=== PATIENT | male | born 1980 | race Caucasian/White ===

== ENCOUNTER 2019-10-13 07:18 | Day surgery (SDC) | payer SELFPAY ==
--- NOTE | 2019-10-12 13:22 | ANES.PREANE2 ---
Pre-Anesthetic Assessment Pre-Anesthetic Assessment: Height/Weight: Height 1.78 m Weight 63.503 kg Preop Diagnosis: Symptomatic right groin hernia Proposed Procedure: Operation Date: 10/13/19 08:50 Proposed Procedures p Laparoscopic Inguinal Hernia Repair(Right) - Franky Singer MD Social: Social History: Tobacco and No alcohol Exam: Pre-Anes Outpt Exam: alert, oriented x 3, clear to auscultation bilaterally and regular rate & rhythm Airway: Submandibular: WNL Cervical ROM: WNL MP: 1 Dentition: Full History/ROS: No significant history except as noted Pulmonary: Pulmonary: None reported CV/HEM: CV/HEM: None reported : : None reported Hepatic: Hepatic: Hepatitis (C) GI: GI: None reported Metabolic: Metabolic: None reported Musc/skel: Musc/skel: None reported Neuropsych: Neuropsych: None reported Anesthetic Plan: ASA status: 2 Anesthesia: Anesthesia Evaluation and General Risk of > 500 ml blood loss (7ml/kg in children): No PFSH Anesthesia PFSH: Medical History Hepatitis C Right inguinal hernia Surgical History History of hand surgery Left History of tonsillectomy and adenoidectomy Family History Denies family history of Anesthesia complication Bleeding disorder Social History Smoking and tobacco status: current every day smoker cigarettes Alcohol intake: never Lives independently: Yes Household members: family History of recent travel: No Data Anesthesia Cardiac Studies: No Data to Display
[2019-10-13] VITALS (11 sets, daily range): BP systolic 98–154; BP diastolic 68–92; PULSE 69–107; RESP 18–26; TEMP 36.2–36.7; O2SAT 91–99
[2019-10-13] MEDS: sodium chloride 0.9% 1,000 ML 30 ML IV (07:58)
--- NOTE | 2019-10-13 08:49 | PM.HPUD ---
H&P update H&P Update: DATE OF SURGERY/PROCEDURE: 10/13/19 DATE H&P PERFORMED: 09/30/19 H&P UPDATE INFORMATION: H&P completed within last 30 days and No changes to prior documentation PREOP DIAGNOSIS: Symptomatic right groin hernia PRIMARY INDICATION FOR PROCEDURE: The same PLANNED PROCEDURE: Operation Date: 10/13/19 08:50 Proposed Procedures p Laparoscopic Inguinal Hernia Repair(Right) - Franky Singer MD Full H&P Medications/Allergies: Current Medications: Current Medications Generic Name Dose Route Start Last Admin Trade Name Freq PRN Reason Stop Dose Admin Sodium Chloride 1,000 mls @ 30 ml s/hr 10/13/19 07:00 10/13/19 07:58 Sodium Chloride 0.9% IV 10/14/19 06:59 30 mls/hr .Q24H ROCIO Administration Perinent History: Medical/Surgical History: Medical History (Updated 09/30/19 @ 15:07 by Franky Singer MD) Hepatitis C Right inguinal hernia Family History: Family History (Updated 09/30/19 @ 13:32 by JACE Silverman) Denies family history of Anesthesia complication Bleeding disorder Social History: Social History Smoking and tobacco status: current every day smoker cigarettes Alcohol intake: never Lives independently: Yes Household members: family History of recent travel: No
[2019-10-13] MEDS: clindamycin 600 MG/50 ML PREMIX 100 MG IV (09:01)
--- NOTE | 2019-10-13 10:50 | PM.OP ---
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 Indications, risks, benefits and alternatives all discussed with the patient Informed consent per chart Procedure: Procedure: Transabdominal preperitoneal (LISA) approach. Patient was identified in the holding area ,patient was taken to the operating room where he was placed in supine position, with both arms were tucked, antibiotic was given with induction, endotracheal tube was placed per anesthesia, Carrillo catheter was inserted by the circulating nurse and revealed clear urine, prep and drape of the abdomen was done under the usual sterile technique. Time-out was done verifying the patient's name/date of /planned procedure destination after the procedure, all were in agreement. SCDs confirmed to be functioning, preoperative antibiotics administered per protocol, and beta rebecca protocol was confirmed. A vertical skin incision of 1.2 cm was made with 11 blade knife through the supra umbilicus , incision was carried down to the subcutaneous tissue and deepened to identify the anterior fascia, evidence of large dave-umbilical fat-containing hernia(fascial defect less than 1 inch in diameter) was dissected and hernial sac and contents were sent for permanent pathology followed by that, two stay sutures were applied to the fascia, and safe entrance to the abdominal cavity was achieved, a Bolaños trocar technique safe entry to the abdominal cavity was achieved verified by using 10 mm zero degree laparoscopy, switched to a 30 degrees scope,low flow followed by a higher flow of CO2 gas up to 15 mmHg. There was no evidence of injury to intra-abdominal structures from the port entry, attention was deviated to both groins, there was a large direct hernia defect with herniation of peritoneum and preperitoneal fat was noted on the right side, two 5 mm ports were placed on the lower left lateral and left upper aspect of the abdomen, under direct visualization, anesthesia 2% lidocaine local was injected at all trocar sites prior to incisions. The peritoneum above the level of the iliopubic tract was incised to the left of the midline and dissection was performed to create a preperitoneal space medial to lateral aspect up to anterior superior iliac spine on the right side. Dissection was continued onto the medial aspect and the right spermatic was identified, there was evidence of indirect inguinal hernia .the sac was dissected. As it applied medial to the right inferior epigastric vessels/ dissection was performed to clear the space lateral to the spermatic cord and dorsomedial to it, the hernia sac was reduced and retracted far back, so there wasn't evidence of a small direct inguinal hernia that was dissected. There was a lot of scar tissues with the hernia sac and a small rent in the peritoneum leaflet was done and thus a 5 mm clips were applied. Then a large 3-D mesh was rolled and placed into the abdominal cavity through the Bolaños port, after the mesh was introduced it was positioned to lie in the myopectineal orifice and the mesh was unrolled and this covered the entire my myope pectineal orifice. Intra-abdominal pressure was dropped to 12 mmHg to help placement of the mesh good position On the lateral aspect of the mesh extended up to the anterior superior iliac spine on the medial aspect the mesh crossed the midline onto the left side, then using absorbable tacks, placed above the iliopubic tract onto the rectus abdominis muscle on the medial aspect and also to the lateral abdominal wall superomedial to the sacroiliac spine, then the mesh was also anchored to the pubis and the Skyler's ligament inferiorly. The peritoneal leaflets were then brought together to cover the mesh and isolated from the other viscera, extra tacks were used to secure the peritoneum in good position. 5 mm clips were applied at the lower part of the peritoneum as there was a small rent Final look demonstrated good hemostasis and the mesh in good position A total of 20 mL Exparel 40 ml Normal saline 20 ml bupivacaine 0.25% were injected at the remaining of the tacks site and trocar sites as well Final look demonstrated good hemostasis, then the abdomen was desufflated while holding the peritoneum to make sure there is no herniation blue the mesh. All ports were removed. Then the fascia on the supra umbilical fascial defect previous site of the hernia was closed using 0 Vicryl under direct visualization using fascial closure device Mahin Puentes. All skin incisions were closed with 4-0 Monocryl subcuticular suture and Dermabond was applied. The patient tolerated the procedure well, Carrillo catheter was taken out ,got extubated and was taken to the recovery area in stable condition All counts of instruments, needles and sponges were completed I was present for the whole entire procedure
[2019-10-13] MEDS: fentaNYL 50 mcg/mL INJ 2mL IVP ×2 (10:58→11:03)
[2019-10-13] MEDS: morphine 4 mg/mL SDV 1 mL 2 MG IVP ×2 (11:05→11:07)
--- NOTE | 2019-10-13 11:27 | SUR.PHASEI ---
1055 PT TO PACU AWAKES TRYING TO GET UP STICKING TONGUE OUT CONFUSED PUSHING AT STAFF, ABD FLAT SOFT WITH 3 SITES EXOFIN SCROTAL SUPPORT AND FLUFFS, PT MOANING FACE SCALE 10 FOR PAIN 1100 PT PUSHING AND TRYING TO GET UP PT REORIENTED AND ASSISTED TO STAY IN BED PT VERBALLY AGGRESSIVE, DOES NOT COMPREHEND RECENT EVENTS PT C/O OF PAIN AND NEED TO VOID NURSES X 4 AT BEDSIDE TO CONTAIN PT TO BED SEE PAIN MEDS GIVEN, VSS 115 PT MORE ALERT , ANGRY TELLING STAFF TO GET OUT , LEAVE , THREATENING, PT GIVEN URINAL BUT REFUSED TO USED IT. PT DEMANDING TO LEAVE, WANTS TO SEE HIS (FRIEND) PT TO OPS TO CALM PT , RN SOPHY AT BEDSIDE PT SITTING UP IN BED ALERT VSS, PT REMAINS ANGRY AND DEMANDING, BUT NO OBVIOUS DISTRESS.
== END 2019-10-13 11:52 | disposition home or self-care (01) ==
PROVIDERS: Family Provider Family Medicine; Visit Provider Surgery
PROC: (CPT 49650; principal; 2019-10-13 08:50)
DX: K40.90 Unilateral inguinal hernia, without obstruction or gangrene, not specified as recurrent (principal); F17.210 Nicotine dependence, cigarettes, uncomplicated; B19.20 Unspecified viral hepatitis C without hepatic coma
CPT/HCPCS: 49650; 12345; 51702; 88304; 96365; C1781; C9290; J0131; J1100; J1885; J2270; J2405; J2704; J2710; J3010; J3490; J7030

== ENCOUNTER → 2023-04-26 14:08 | Outpatient (BNVA) | payer MEDICAID, SELFPAY | PROVIDERS: PCP Family Medicine; Visit Provider Nurse Practitioner | DX: M79.642 Pain in left hand (principal); M19.042 Primary osteoarthritis, left hand | CPT/HCPCS: 73130 ==

== ENCOUNTER → 2024-09-03 09:10 | Outpatient (BNVA) | payer MEDICAID, SELFPAY | PROVIDERS: PCP Nurse Practitioner Family; Visit Provider Nurse Practitioner Family | DX: Z13.6 Encounter for screening for cardiovascular disorders (principal); Z12.5 Encounter for screening for malignant neoplasm of prostate; J44.9 Chronic obstructive pulmonary disease, unspecified; Z79.899 Other long term (current) drug therapy | CPT/HCPCS: 71046; 80053; 80061; 80074; 82105; 82306; 83036; 84443; 85025; 87522; 87806; 87902; G0103 ==

== ENCOUNTER → 2025-07-07 15:19 | Outpatient (BNVA) | payer MEDICAID, SELFPAY | PROVIDERS: PCP Nurse Practitioner Family; Visit Provider Nurse Practitioner Family | DX: Z13.6 Encounter for screening for cardiovascular disorders (principal); B18.2 Chronic viral hepatitis C; R53.83 Other fatigue; Z79.899 Other long term (current) drug therapy | CPT/HCPCS: 80053; 80061; 81003; 82306; 83036; 84443; 85025 ==

== ENCOUNTER 2025-08-13 08:06 | Outpatient (CLI) | payer MEDICAID, SELFPAY ==
--- NOTE | 2025-08-13 09:00 | US_ITS ---
WS: [id number] Gallbladder and right upper quadrant ultrasound, 08/13/2025 Clinical Data: B18.2 - Chronic viral hepatitis C Comparison: None. Findings: The gallbladder shows no sludge or stone. The wall measures 0.2 cm with no pericholecystic fluid. The common bile duct is 0.3 cm and there are no intrahepatic ductal abnormalities. Liver shows no cysts, masses or dilated intrahepatic ducts. The portal vein shows hepatopetal flow and measures 0.9 cm. The liver measures 14.5 cm. There is normal echogenicity of the liver. The pancreas is obscured by overlying bowel gas but no cyst, pseudocyst, or evidence of pancreatitis is noted. Right kidney measures 9.9 cm and no cyst, masses or hydronephrosis can be seen. The aorta and inferior vena cava show no vascular abnormalities. US/US liver [id number] Impression: Negative gallbladder and right upper quadrant ultrasound.
== END 2025-08-13 08:07 | disposition home or self-care (01) ==
LOC: RAD 08:07
PROVIDERS: PCP Nurse Practitioner Family; Visit Provider Nurse Practitioner Family
DX: N18.2 Chronic kidney disease, stage 2 (mild) (principal); R93.2 Abnormal findings on diagnostic imaging of liver and biliary tract
CPT/HCPCS: 76705